=== PATIENT | male | born 1980 | race Caucasian/White ===

== ENCOUNTER 2024-03-22 14:41 | Outpatient (CLI) | payer OTHER, SELFPAY | END 2024-03-22 14:42 | disposition home or self-care (01) | PROVIDERS: PCP Family Medicine; Visit Provider Family Medicine | DX: Z00.00 Encounter for general adult medical examination without abnormal findings (principal); I10 Essential (primary) hypertension; G89.29 Other chronic pain; Z13.6 Encounter for screening for cardiovascular disorders; Z13.1 Encounter for screening for diabetes mellitus; Z11.59 Encounter for screening for other viral diseases | CPT/HCPCS: 80053; 80061; 82043; 82570; 86803 ==

== ENCOUNTER 2024-08-19 12:19 | Outpatient (CLI) | payer OTHER, SELFPAY ==
--- NOTE | 2024-08-27 12:26 | W.PM.SLEEP ---
Sleep Study Details Details Interpreting Provider: Dominique Date of Sleep Study: 08/19/24 Sleep Study Details: STUDY TYPE:? Home unattended ? BMI:? 28.6 ORDERING PROVIDER:? Dominique INDICATION:? Concern about sleep apnea ? SLEEP SUMMARY:? 466 minutes monitored RESPIRATORY SUMMARY:? AHI 26.8 Low oxygen 83 1.2% of study oxygen less than 90% Snoring 95.5% PERIODIC LIMB MOVEMENTS OF SLEEP:? Not record CARDIAC:? Range 59-103, mean 70.7 IMPRESSION:? Moderate obstructive sleep apnea RECOMMENDATION: Treatment options include CPAP or dental appliance.
== END 2024-08-19 12:20 | disposition home or self-care (01) ==
LOC: SLEEP 12:20
PROVIDERS: PCP Family Medicine; Visit Provider Otolaryngology
DX: G47.33 Obstructive sleep apnea (adult) (pediatric) (principal)
CPT/HCPCS: 95806